=== PATIENT | female | born 1970 | race Caucasian/White ===

== ENCOUNTER 2017-01-11 10:51 | Outpatient (CLI) | payer OTHER ==
[2017-01-11 11:18] LABS: BASOPHILS % 0.8 (0.0-1.5); EOSINOPHILS % 3.3 % (0.0-6.8); LYMPHOCYTES # 2.2 # k/uL (0.6-4.0); MEAN CORPUSCULAR HEMOGLOBIN 29.8 pg (28.0-34.0); MONOCYTES # 0.4 # k/uL (0.0-0.9); MONOCYTES % 4.5 % (0.0-11.0); NEUTROPHILS # 5.9 # k/uL (1.4-7.7)
[2017-01-11 11:44] LABS: eGFR (African) > 60; eGFR (Non-African) > 60
== END 2017-01-11 10:52 ==
LOC: LAB 10:51
PROVIDERS: ATTEND Physician Assistant
DX: Z83.42 Family history of familial hypercholesterolemia (principal); R25.2 Cramp and spasm; R07.9 Chest pain, unspecified
CPT/HCPCS: 36415; 80053; 80061; 83735; 85025

== ENCOUNTER 2018-06-07 16:01 | Outpatient (CLI) | payer OTHER ==
[2018-06-07 16:41] LABS: BASOPHILS % 0.7 (0.0-1.5); EOSINOPHILS % 2.7 % (0.0-6.8); MEAN CORPUSCULAR HEMOGLOBIN 30.6 pg (28.0-34.0); MEAN CORPUSCULAR VOLUME 94.5 fl (80.0-100.0); MONOCYTES % 3.7 % (0.0-11.0)
[2018-06-07 17:02] LABS: eGFR (African) > 60; eGFR (Non-African) > 60
--- NOTE | 2018-06-07 18:56 | Diagnostic Imaging Report ---
BANDAR ANNA [facility] [address] [facility] [address] [place], [place]. [address] Report Submission Date: Jun 07, 2018 6:53:05 PM CDT Patient Study Name: ANDREW KAPLAN Date: Jun 07, 2018 6:35:21 PM CDT Modality Type: CT\SR Gender: F Description: CT BRAIN W/O CONTRAST : 74 Institution: [facility] Physician: BANDAR ANNA Computed tomography head without contrast History: Weakness and headache. Difficulty swallowing. Findings: Transverse brain sections are obtained without contrast revealing normal sized ventricles and sulci. Hidalgo-white differentiation is intact. There is no intracranial hemorrhage, mass effect, fluid collection, or skull lesion. Visualized sinuses and mastoid air cells are clear. Impression: Unremarkable brain. Electronically signed on Jun 07, 2018 6:53:05 PM CDT by: Mook [email or web address]
== END 2018-06-07 16:03 ==
LOC: LAB 16:01
PROVIDERS: ATTEND Nurse Practitioner Family
DX: R53.1 Weakness (principal)
CPT/HCPCS: 36415; 70450; 80053; 85025; 85610

== ENCOUNTER 2018-06-22 08:29 | Outpatient (CLI) | payer OTHER | END 2018-06-22 08:30 | LOC: LAB 08:29 | PROVIDERS: ATTEND Nurse Practitioner Family | DX: Z13.220 Encounter for screening for lipoid disorders (principal) | CPT/HCPCS: 36415; 80061 ==